=== PATIENT | female | born 1965 | race African-American/Black ===

== ENCOUNTER 2017-03-21 19:22 | Emergency (ER) | payer OTHER ==
[~2017-03-21] VITALS: Ht 165.1 cm; Wt 106.6 kg
[2017-03-21] MEDS ORDERED: VITAMIN B-12250 MCG PO (19:31)
[2017-03-21 20:50] VITALS: BP 130/84
[2017-03-21] MEDS ORDERED: IBUPROFEN600 MG ORAL (21:01)
[2017-03-21] MEDS ORDERED: NEURONTIN400 MG ORAL (21:01)
[2017-03-21 21:40] VITALS: BP 128/82
--- NOTE | 2017-03-22 00:57 | Emergency Room Report ---
History of Present Illness General Chief Complaint: Pain Source: Patient Present Illness HPI Patient is a 52-year-old female presented after increased left-sided shoulder pain. Patient noted have prior history of similar type symptoms. This had been intermittent in nature. The patient have increased pain with movements of the shoulder. Patient was noted to have increased pain to her hand as well. The patient denies any recent trauma. She reports having increased clicking. She denies fever or increased swelling Allergies: Coded Allergies: No Known Allergies (Unverified , 03/21/17) Patient History Past Medical History: see triage record Last Menstrual Period: Feb Reviewed Nursing Documentation: PMH: Agreed, PSxH: Agreed Nursing Documentation-PMH Past Medical History: No Stated History Review of Systems All Other Systems: negative except mentioned in HPI Physical Exam Vital Signs Date Time Temp Pulse Resp B/P (MAP) Pulse Ox O2 Delivery O2 Flow Rate FiO2 03/21/17 19:23 97.9 74 16 136/86 97 Room Air General Appearance: well appearing, no apparent distress, alert, GCS 15, obese Head: normocephalic, atraumatic ENT: hearing grossly normal, normal voice Neck: full range of motion, supple Respiratory: no respiratory distress, speaking full sentences Cardiovascular #1: normal inspection, normal peripheral pulses, no edema Gastrointestinal: normal inspection Musculoskeletal: gait/station normal, decreased range of mation - abduction Neurologic: normal inspection, alert, normal gait Psychiatric: mood/affect normal Skin: no rash Medical Decision Making Diagnostic Impression: Primary Impression: Shoulder pain, acute Additional Impression: Peripheral nerve disorder ER Course Patient presented for shoulder pain. Differential diagnoses included was not limited to fracture, dislocation, a.c. separation, septic joint. The EKG was ordered which showed normal sinus rhythm rate of [address] or T wave changes. the patient was advised followup with primary care physician for reevaluation patient. The patient was given prescription for anti -inflammatory medications as well as Neurontin. Patient is advised that she may need MRI if pain persisted. EKG Diagnostic Results Rate: normal Rhythm: NSR ST Segments: no acute changes ASA given to the pt in ED: No Last Vital Signs Date Time Temp Pulse Resp B/P (MAP) Pulse Ox O2 Delivery O2 Flow Rate FiO2 03/21/17 22:07 97.9 03/21/17 21:40 80 16 128/82 100 Room Air Status: improved Disposition: HOME, SELF-CARE Condition: Stable Scripts Ibuprofen* (MOTRIN*) 600 Mg Tablet 600 MG ORAL Q8H Y for For Pain, #30 TAB 0 Refills Prov: Sandeep Clark 03/21/17 Gabapentin* (NEURONTIN*) 400 Mg Capsule 400 MG ORAL THREE TIMES A DAY, #15 CAP 0 Refills Prov: Sandeep Clark 03/21/17 Referrals: [facility]ERR[facility] (PCP) Patient Instructions: Neuropathic Pain Sandeep Clrak Mar 22, 2017 00:57
--- NOTE | 2017-03-22 18:54 | Cardiology Report ---
APPROVED REPORT EKG Measurement Heart [id number] SD [id number] Normal sinus rhythm Normal ECG
== END 2017-03-21 21:45 | disposition home or self-care (01) ==
LOC: EMR 19:40
DX: M25.512 Pain in left shoulder (principal); G58.8 Other specified mononeuropathies
CPT/HCPCS: 93005; 99283